=== PATIENT | male | born 1960 | race Two or more races ===

== ENCOUNTER 2024-03-31 05:01 | Emergency (ER) | payer OTHER ==
[2024-03-31 05:20] VITALS: BP 115/83; PULSE 98; RESP 22; TEMP 99.3; BMI 27.3
[2024-03-31] MEDS: SODIUM CHLORIDE 0.9% 500 ML INFUS.BAG IV ONE (05:39)
[2024-03-31] MEDS: FAMOTIDINE 20 MG/50 ML IVPB 20 MG/50 ML MG IVPB ONE (05:40)
[2024-03-31] MEDS: ONDANSETRON 4 MG/2 ML VIAL IVPUSH ONE (05:40)
[2024-03-31] MEDS: ACETAMINOPHEN 1000 MG/100 ML BAG IVPB ONE (05:40)
[2024-03-31 06:15] LABS: BASO % 0.5 % (0-2.0); EOS % 1.2 % (0-4.5); HEMATOCRIT 44.6 % (35.4-49); HEMOGLOBIN 14.3 GM/dL (11.7-16.9); LYMPH % 32.7 % (8-40); MCH 27.1 pg (25.7-33.7); MCHC 32.1 g/dl (32.0-35.9); MEAN CELL VOLUME 84.4 fl (80-96); MEAN PLT VOLUME 7.7 fl (7.5-11.1); MONO % 5.8 % (3.8-10.2); NEUT % 59.8 % (42.8-82.8); PLATELET COUNT 344 10^3/uL (134-434); RBC 5.29 M/mm3 (4.00-5.60); RDW 15.3 % (11.9-15.9); WHITE BLOOD COUNT 9.9 K/mm3 (4.0-10.0)
[2024-03-31] MEDS ORDERED: PANTOPRAZOLE SODIUM 80 MG/200 ML BAG IVPB ONE (06:24)
[2024-03-31 06:28] LABS: POTASSIUM 3.9 mmol/L (3.5-5.1)
[2024-03-31 06:29] LABS: INR 0.88 (0.83-1.09)
[2024-03-31 06:31] LABS: ACTIVATED PTT 34.5 SECONDS (25.2-36.5)
[2024-03-31 06:31] LABS: ALBUMIN 3.8 g/dl (3.4-5.0); BLOOD UREA NITROGEN 11.4 mg/dL (7-18)
[2024-03-31 06:33] LABS: CREATININE 0.8 mg/dL (0.55-1.3)
[2024-03-31] MEDS: PANTOPRAZOLE SODIUM 40 MG VIAL IVPUSH ONE (06:33)
[2024-03-31 06:35] LABS: BILIRUBIN,TOTAL 0.1 mg/dL (0.2-1)
[2024-03-31 09:57] LABS: PH,URINE 5.5 (5.0-8.0); URINE APPEARANCE CLEAR; URINE BILIRUBIN NEGATIVE (NEGATIVE); URINE COLOR YELLOW; URINE GLUCOSE (UA) NEGATIVE (NEGATIVE); URINE KETONE NEGATIVE (NEGATIVE); URINE LEUK ESTERASE NEGATIVE (NEGATIVE); URINE NITRITE NEGATIVE (NEGATIVE); URINE PROTEIN NEGATIVE (NEGATIVE); URINE UROBILINOGEN 0.2 mg/dL (0.2-1.0)
== END 2024-03-31 11:20 | disposition home or self-care (01) ==
LOC: JER 05:01
PROC: 3E033GC Introduction of Other Therapeutic Substance into Peripheral Vein, Percutaneous Approach (ICD-10-PCS; principal; 2024-03-31)
PROC: 3E033GC Introduction of Other Therapeutic Substance into Peripheral Vein, Percutaneous Approach (ICD-10-PCS; 2024-03-31)
PROC: 3E033GC Introduction of Other Therapeutic Substance into Peripheral Vein, Percutaneous Approach (ICD-10-PCS; 2024-03-31)
PROC: 3E033NZ Introduction of Analgesics, Hypnotics, Sedatives into Peripheral Vein, Percutaneous Approach (ICD-10-PCS; 2024-03-31)
DX: R10.13 Epigastric pain (principal); K92.0 Hematemesis
CPT/HCPCS: 36415; 71045-TC-FY; 74177-TC; 80053; 80307; 81003; 83605; 83690; 84484; 85025; 85610; 85730; 86850; 86900; 86901; 87086; 93005; 93010; 99285-25; J0131; Q9967